=== PATIENT | female | born 1975 | race Caucasian/White ===

== ENCOUNTER 2023-01-03 10:41 | Outpatient (CLI) | payer BC | END 2023-01-03 10:42 | disposition home or self-care (01) | LOC: CSHMAMMO 10:41 | PROVIDERS: ATTEND Obstetrics & Gynecology | DX: Z12.31 Encounter for screening mammogram for malignant neoplasm of breast (principal); Z80.3 Family history of malignant neoplasm of breast | CPT/HCPCS: 77063; 77067 ==

== ENCOUNTER 2024-01-23 11:05 | Outpatient (CLI) | payer BC | END 2024-01-23 11:06 | disposition home or self-care (01) | LOC: CSHMAMMO 11:05 | PROVIDERS: ATTEND Obstetrics & Gynecology | DX: Z12.31 Encounter for screening mammogram for malignant neoplasm of breast (principal); Z80.3 Family history of malignant neoplasm of breast | CPT/HCPCS: 77067 ==

== ENCOUNTER 2024-03-05 06:02 | Day surgery (SDC) | payer BC ==
[2024-03-04 11:06] VITALS: BMI 25.7
[2024-03-05 07:01] LABS: #Basophils 0.03 10x3/uL (0.0-0.2); #Eosinophils 0.28 10x3/uL (0.0-0.5); #Monocytes 0.57 10x3/uL (0.0-1.1); #Neutrophils 5.41 10x3/uL (1.5-8.4); %Basophils 0.4 % (0.0-2.0); %Eosinophils 3.3 % (0.0-6.0); %Lymphocytes 25.1 % (18.0-47.0); %Monocytes 6.7 % (0.0-10.0); %Neutrophils 63.9 % (40.0-75.0); Hematocrit 38.9 % (34.9-44.5); Hemoglobin 12.9 g/dL (12.0-15.5); Mean Corpuscular HGB CONC 33.2 g/dL (32.0-36.0); Mean Corpuscular Hemoglobin 31.1 pg (27.0-33.0); Mean Corpuscular Volume 93.7 fL (81.6-98.3); Mean Platelet Volume 9.4 fL (7.4-10.4); Platelet Count 281 10x3/uL (150-450); RBC Distribution Width 12.4 % (11.5-14.5); Red Blood Cell (RBC) Count 4.15 10x6/uL (3.90-5.03); White Blood Cell (WBC) Count 8.5 10x3/uL (3.5-10.5)
[2024-03-05 07:09] LABS: BHCG - Serum Negative (NEGATIVE); Pregs Control Background? CLEAR/WHITE (CLR/WHITE); Pregs Control Bar Appear? YES (CONTROL BAR)
[2024-03-05] MEDS ORDERED: PROPOFOL 20 ML ONE (07:27)
[2024-03-05] MEDS ORDERED: Lidocaine 1% PF 5 ML VIAL ONE (07:28)
[2024-03-05] MEDS ORDERED: fentaNYL 50 mcg/mL 1 mL Vial ONE (07:29)
[2024-03-05 07:34] LABS: Anion Gap 14 mmol/L (10-20); BUN (Urea Nitrogen) 8 mg/dL (7.0-18.7); Calc. Creatinine Clearance 112 mL/min (70-130); Calcium 9.5 mg/dL (7.8-10.44); Carbon Dioxide 23 mmol/L (22-29); Chloride 107 mmol/L (98-107); Estimated GFR 107; Glucose 89 mg/dL (70-105); Potassium 3.8 mmol/L (3.5-5.1); Sodium 140 mmol/L (136-145)
[2024-03-05] MEDS ORDERED: Scopolamine 1 mg/72 hour Patch ONE (07:48)
[2024-03-05] MEDS ORDERED: Midazolam HCl 2 mg/2 ml Vial ONE (07:48)
[2024-03-05] MEDS ORDERED: Clindamycin/D5W 900 mg/50 ml Premix Bag ONE (08:20)
[2024-03-05] MEDS ORDERED: Ondansetron PF 4 MG/2 ML Vial ONE (08:32)
[2024-03-05] MEDS ORDERED: Dexamethasone 4 mg/ml Vial ONE (08:32)
[2024-03-05] MEDS ORDERED: Ketorolac Tromethamine 30 MG (1 mL) VIAL ONE (09:02)
[2024-03-05] MEDS ORDERED: HYDROcodone/Acetaminophen 5/325 mg Tablet ONE (10:09)
== END 2024-03-05 10:40 | disposition home or self-care (01) ==
LOC: CSHSDC 06:02
PROVIDERS: ATTEND Obstetrics & Gynecology
PROC: 0U5B8ZZ Destruction of Endometrium, Via Natural or Artificial Opening Endoscopic (ICD-10-PCS; principal; 2024-03-05)
DX: N84.0 Polyp of corpus uteri (principal); N76.1 Subacute and chronic vaginitis; Z87.59 Personal history of other complications of pregnancy, childbirth and the puerperium; Z98.51 Tubal ligation status; Z88.0 Allergy status to penicillin; Z88.1 Allergy status to other antibiotic agents; Z79.890 Hormone replacement therapy
CPT/HCPCS: 36415; 80048; 84703; 85025; 88305; J1100; J1885; J2250; J2405; J2704; J3010; J3490

== ENCOUNTER 2025-01-26 10:40 | Outpatient (CLI) | payer BC | END 2025-01-26 10:41 | disposition home or self-care (01) | LOC: CSHMAMMO 10:40 | PROVIDERS: ATTEND Obstetrics & Gynecology | DX: Z12.31 Encounter for screening mammogram for malignant neoplasm of breast (principal); Z80.3 Family history of malignant neoplasm of breast | CPT/HCPCS: 77063; 77067 ==